=== PATIENT | female | born 1995 | race Caucasian/White ===

== ENCOUNTER 2020-08-19 10:06 | Emergency (ER) | payer SELFPAY ==
--- NOTE | 2020-08-19 10:22 | ED.DENTAL ---
HPI - Dental/Oral General Chief complaint: Dental/Oral Stated complaint: Tooth Pain Time Seen by Provider: 08/19/20 10:22 Source: patient and RN notes reviewed Mode of arrival: ambulatory Limitations: no limitations History of Present Illness HPI Narrative: 24-year-old female presents concern for right lower tooth pain. Reports she has a broken tooth in that area, it occasionally causes discomfort, however in the last several days it has been swelling, worsening pain, pain radiating to the neck and the ear. She reports mild fever when the pain first started. She has been unable to get into see the dentist. She reports she has been taking ibuprofen. She denies difficulty swallowing, foul taste in her mouth. MD Complaint: tooth pain Related Data Allergies Allergy/AdvReac Type Severity Reaction Status Date / Time No Known Allergies Allergy Unverified 12/31/18 11:44 Review of Systems Review of Systems: Narrative: CONSTITUTIONAL: Denies malaise, chills, sweats, or fever. EYES: Denies visual changes, redness, or discharge. ENT: Denies rhinorrhea, congestion, sinus pain, otalgia or sore throat. Reports right lower facial swelling and dental pain CARDIOVASCULAR: Denies chest pain, palpitations, or edema. RESPIRATORY: Denies cough or dyspnea. SKIN: Denies rash or itching. MUSCULOSKELETAL: Denies myalgia. NEUROLOGIC: Denies numbness, weakness, or headache. All systems reviewed & are unremarkable except as noted in HPI and below PMFSH Social History Social History Gender identity (if verbalized by the patient): Female Comments At time of signature, agree with nursing past medical, surgical, social and family history. There is no relevant family history pertinent to the presenting complaint Exam Narrative: Exam Narrative: GENERAL: Well-appearing, well-nourished, and in no acute distress. HEAD: Normocephalic, atraumatic. EYES: PERRLA, conjunctivae clear, and EOMI. No nystagmus. ENT: Nares clear. Mucous membranes moist. Oropharynx without erythema or lesions. Tonsils not enlarged and without exudate. Right lower jaw swelling tooth #31 broken with filling noted, no other caries, broken teeth are missing teeth noted NECK: Supple. CHEST: No respiratory distress. Clear to auscultation. No bony deformities, no asymmetry. Speaks in full sentences. HEART: Regular rate and rhythm. SKIN: Warm, dry, no rash. NEURO: Alert and oriented x3. PSYCH: Normal mood and affect Course Course Emergency Course: Patient is aware of diagnosis, understands and agrees to treatment plan. Anticipatory guidance given. Patient agrees to follow-up as directed and is aware of reasons to seek care at the emergency department. Portions of this record may have been created with voice recognition software Vital Signs Vital signs: Vital Signs Temperature 97.8 F 08/19/20 10:24 Pulse Rate 83 08/19/20 10:24 Respiratory Rate 16 08/19/20 10:24 Blood Pressure 120/78 08/19/20 10:24 Pulse Oximetry 100 08/19/20 10:24 Temperature 97.8 F 08/19/20 10:24 Pulse Rate 83 08/19/20 10:24 Respiratory Rate 16 08/19/20 10:24 Blood Pressure 120/78 08/19/20 10:24 Pulse Oximetry 100 08/19/20 10:24 Reviewed. MDM - Dental/Oral MDM Narrative Medical decision making narrative: Patients pain and complaint coupled with physical findings are consistant with dentalgia. There are no focal signs of space occupying lesions that are compromising to the airway; no dysphagia, odynophagia, dysphonia, or dyspnea. No uvular deviation or soft palate edema. Patient is non-toxic appearing. The floor of the mouth is soft with no signs of Virgil's Angina; no induration below mandible, no neck pain. Patient is without trismus or drooling and able to swallow secretions. Patient is felt appropriate for discharge home with dental follow up. Critical Care Time Critical Care Time Critical Care Time: No Discharge Plan Discharge Clinical Impression: Dental a
[2020-08-19 10:24] VITALS: BP 120/78; PULSE 83; RESP 16; TEMP 36.6; O2SAT 100
== END 2020-08-19 10:32 | disposition home or self-care (01) ==
PROVIDERS: Emergency Provider Nurse Practitioner
DX: K04.7 Periapical abscess without sinus (principal)
CPT/HCPCS: 99213; G0463

== ENCOUNTER 2021-02-22 19:29 | Emergency (ER) | payer SELFPAY ==
[2021-02-22 19:37] VITALS: BP 123/74; PULSE 67; RESP 17; TEMP 36.7; O2SAT 100
--- NOTE | 2021-02-22 19:57 | ED.DENTAL ---
HPI - Dental/Oral General Chief complaint: Dental/Oral Stated complaint: Tooth Pain Time Seen by Provider: 02/22/21 19:57 Source: patient Mode of arrival: ambulatory Limitations: no limitations History of Present Illness HPI Narrative: 25 year old female who presents to [facility] with complaints of facial swelling with dental pain upper and lower posteriorly radiating to bilateral ears. Patient states that she went [facility] past and was told she needed a specialist. Patient has numerous dental caries, missing teeth and with molars in front of wisdom teeth broken off with present wisdom teeth coming in at angles and pushing against remnants of those molars. Patient does have bilateral facial swelling along posterior jaw area,with some tenderness on palpation. Patient denies any difficulty with swallowing or with her breathing. MD Complaint: tooth pain Onset (ago): week(s) (2) Duration: constant Severity scale (1-10): 8 Relieving factors: NSAIDs Exacerbating factors: chewing Context: history of dental caries and poor dental care Associated symptoms: ear pain and other (facial swelling and pain) Treatment prior to arrival: oral analgesic (ibuprofen) Related Data Allergies Allergy/AdvReac Type Severity Reaction Status Date / Time No Known Allergies Allergy Verified 02/22/21 19:45 Review of Systems Review of Systems: CONSTITUTIONAL: Denies fever, chills, or sweats. EYES: Denies visual changes, redness, or discharge. ENT: Denies rhinorrhea, congestion, sore throat, or otalgia.dental pain with facial swelling,caries and wisdom teeth coming in at angles pushing against molars which have broken and have decay. CARDIOVASCULAR: Denies chest pain, palpitations, or edema. RESPIRATORY: Denies cough or dyspnea. GASTROINTESTINAL: Denies abdominal pain, nausea, vomiting, or diarrhea. GENITOURINARY: Denies dysuria or hematuria. SKIN: Denies rash or itching. MUSCULOSKELETAL: Denies back pain, joint pain, or myalgia. NEUROLOGIC: Denies headache, numbness, or weakness. PSYCHIATRIC: Denies anxiety or depression. All systems reviewed & are unremarkable except as noted in HPI and below PMFSH Past Medical History Medical History (Updated 02/25/21 @ 13:26 by Gita Amado NP) Heart murmur Pulmonary stenosis Social History Social History Gender identity (if verbalized by the patient): Female Comments At time of signature, agree with nursing past medical, surgical, social and family history. There is no relevant family history pertinent to the presenting complaint Exam Narrative: GENERAL: Well-appearing, well-nourished, and in no acute distress. HEAD: Normocephalic, atraumatic. EYES: PERRLA and EOMI. ENT: Nares clear, no rhinorrhea or epistaxis. Mucous membranes moist.TM's normal with good light reflex, throat pink with no tonsil swelling or exudates,no Virgil angina noted. Dental pain upper and lower posterior molars which are broken and decayed which have wisdom teeth that are coming in and pushing against them with swelling to gums with redness and pain NECK: Supple. no lymphadenopathy CHEST: Clear to auscultation. No respiratory distress.[id number]% on room air HEART: Regular rate and rhythm. No murmur heard. Normal peripheral pulses. ABDOMEN: Soft, nontender, nondistended, normal active bowel sounds. EXTREMITIES: Normal range of motion. No edema. SKIN: Warm, dry, no rash. NEURO: No focal deficits. Alert and oriented x3. Course Vital Signs Vital signs: Vital Signs Temperature 36.7 C 02/22/21 19:37 Pulse Rate 67 02/22/21 19:37 Respiratory Rate 02/22/21 19:37 Blood Pressure 123/74 02/22/21 19:37 Pulse Oximetry 100 02/22/21 19:37 Temperature 36.7 C 02/22/21 19:37 Pulse Rate 67 02/22/21 19:37 Respiratory Rate 02/22/21 19:37 Blood Pressure 123/74 02/22/21 19:37 Pulse Oximetry 100 02/22/21 19:37 MDM - Dental/Oral Diffe
== END 2021-02-22 20:22 | disposition home or self-care (01) ==
PROVIDERS: Emergency Provider Registered Nurse
DX: K02.9 Dental caries, unspecified (principal); K04.7 Periapical abscess without sinus; R01.1 Cardiac murmur, unspecified; Q25.6 Stenosis of pulmonary artery
CPT/HCPCS: 99213; G0463

== ENCOUNTER 2021-08-06 14:36 | Emergency (ER) | payer SELFPAY ==
[2021-08-06 14:49] VITALS: BP 127/77; PULSE 105; RESP 16; TEMP 36.3; O2SAT 99
--- NOTE | 2021-08-06 14:56 | ED.FEMALEGU ---
HPI - Female Genitourinary General Chief complaint: Urogenital-Female Stated complaint: leakage Time Seen by Provider: 08/06/21 14:50 Source: patient, family, RN notes reviewed and old records reviewed Mode of arrival: ambulatory Limitations: no limitations History of Present Illness HPI Narrative: 25-year-old female presents to the [facility] with complaints of leaking vaginally. Reports she is approximately 5 months . No care. 6 para 4 States that she feels the baby moving. MD elicited complaint: pelvic pain Related Data Home Medications Medication Instructions Recorded Confirmed No Home Medications 08/06/21 08/06/21 Allergies Allergy/AdvReac Type Severity Reaction Status Date / Time No Known Allergies Allergy Verified 02/22/21 19:45 Review of Systems Review of Systems: All systems reviewed & are unremarkable except as noted in HPI and below Constitutional: Constitutional: Reports no additional constitutional complaints, Denies chills and Denies fatigue ENT: Reports system reviewed and no additional complaints, except as documented Cardiovascular: Cardiovascular: Reports no additional cardiovascular complaints Respiratory: Respiratory: Reports no additional respiratory complaints Gastrointestinal: Gastrointestinal: Reports no additional gastrointestinal complaints, Denies abdominal pain and Denies nausea Genitourinary: Genitourinary: Reports vaginal discharge (clear) Musculoskeletal: Musculoskeletal: Reports no additional musculoskeletal complaints Integumentary/Breasts: Skin/Breast: Reports system reviewed and no additional complaints, except as docu Neurologic: Reports system reviewed and no additional complaints, except as documented Psychiatric: Psychiatric: Reports no additional psychiatric complaints Allergic/Immunologic: Allergic/Immunologic: Reports no additional allergic/immunologic complaints PMFSH Past Medical History Medical History Heart murmur Pulmonary stenosis Social History Social History Gender identity (if verbalized by the patient): Female Comments At the time of my signature, I reviewed and agree with the nursing past medical, surgical, social, and family history. There is no relevant family history pertinent to the patient complaint. Exam Const: General: healthy appearing, no acute distress and alert Nutritional Appearance: well nourished Orientation/consciousness: patient oriented x3 Limitations: no limitations HENMT: Head: normal to inspection Eyes: Pupils: Equal, round and reactive pupils present Neck: Neck: normal visual inspection, no lymphadenopathy and no meningeal signs Chest: Chest palpation & inspection: normal inspection of the chest Resp: Effort & Inspection: normal respiratory effort and no use of accessory muscles Auscultation: clear to auscultation bilaterally, no crackles, no rales, no rhonchi and no wheezes Cardio: Rate: regular rate Rhythm: regular rhythm GI: GI Palp: Yes Soft to palpation Other: Able to feel baby moving on palpation Back/Spine/Pelvis: Back: no CVA tenderness Skin: General skin exam: normal color Rashes: no rashes Wounds: no wounds Neuro: General: patient oriented x3, moves all extremities, no meningeal signs and no focal motor deficits Speech: normal speech Gait exam (Neuro): Normal gait present Extrem: General: normal to inspection Psych: Mental Status: mental status grossly normal Affect: normal affect and Anxious affect present Attitude: cooperative Thought content: Yes Normal thought content present Course Course Emergency Course: Transfer instructions reviewed with patient, as well as provided in writing per nursing staff. The instructions also include specific and strict GO TO THE ER. Patient offered EMS transport, patient declined wanting her friend to drive her. All questions
[2021-08-06 14:58] VITALS: BP 127/77; PULSE 105; RESP 16; TEMP 36.3; O2SAT 99
--- NOTE | 2021-08-06 16:52 | PC.NURSE ---
radio time salesperson [facility]
== END 2021-08-06 15:07 | disposition short-term general hospital (02) ==
PROVIDERS: Emergency Provider Nurse Practitioner
DX: O26.90 Pregnancy related conditions, unspecified, unspecified trimester (principal)
CPT/HCPCS: 99212; G0463

== ENCOUNTER 2022-07-25 16:58 | Emergency (ER) | payer OTHER, SELFPAY ==
--- NOTE | ~2022-07-25 | US_ITS ---
EXAMINATION: US OB <= 14 weeks fetus DATE: 07/25/2022 18:18 INDICATION: Vaginal bleeding in . TECHNIQUE: Real-time transabdominal pelvic ultrasound was performed. COMPARISON: None. FINDINGS: There is a gestational sac in the lower uterine segment and cervix. The crown rump length ignacio ures 1.9 cm, which correlates with an estimated gestational age of 8 weeks and 3 day(s) (+/-) 5 day(s ). heart motion is not identified by M-mode Doppler. The right ovary is not visualized. The lef t ovary measures 3.8 x 3.8 x 2.1 cm. There is no free fluid in the pelvis. IMPRESSION: 1. demise. Reviewed, dictated and finalized at location A. LITY MAINTENANCE MANAGER IMPRESSION: 1. demise.
--- NOTE | 2022-07-25 17:31 | PC.NURSE ---
Patient complains of contraction type pains. Patient has been bleeding a few days ago.
[2022-07-25 17:33] VITALS: BP 140/78; PULSE 53; RESP 13; O2SAT 100
[2022-07-25 18:29] LABS: Add Urine Microscopic? YES; Appearance Urine Clear (Clear); Bilirubin Urine Negative (Negative); Blood Urine 3+ (Negative); Color Urine Yellow (Yellow); Glucose Urine UA Negative (Negative); Ketones Urine Negative (Negative); Leukocyte Esterase Ur Negative LEU/UL (Negative); Nitrate Urine Negative (Negative); Protein Urine Negative (Negative); Urobilinogen Urine 0.2 mg/dL (<2.0)
[2022-07-25 18:30] LABS: Basophils Absolute Auto 0.1 K/mm3 (0.0-0.1); Eosinophils Absolute Auto 0.2 K/mm3 (0-0.3); Eosinophils Percent Auto 1.2 % (0-4.4); Hematocrit 39.7 % (37.0-47.0); Immature Granulocyte Absolute 0.05 K/mm3 (0.00-0.031); Immature Granulocyte Percent A 0.4 % (0-0.5); Immature Platelet Fraction Pct 21.5 % (0.9-11.2); Lymphocytes Percent Auto 37.7 % (18.3-44.2); Mean Corpuscular HGB Conc 32.7 g/dl (32-36); Mean Corpuscular Hemoglobin 31.3 pg (26-34); Mean Corpuscular Volume 95.4 fl (80-100); Mean Platelet Volume 14.4 fl (7.4-10.4); Monocytes Absolute Auto 1.1 K/mm3 (0.1-0.6); Monocytes Percent Auto 7.8 % (2.6-8.5); Neutrophils Absolute Auto 7.2 K/mm3 (1.3-6.7); Neutrophils Percent Auto 51.9 % (45.5-73.1); Platelet Count Result 172 k/mm3 (150-375); Red Blood Count 4.16 M/mm3 (4.2-5.4); Red Cell Distribution Width 13.4 % (11.5-14.5); White Blood Count 13.8 K/mm3 (4.5-10.0)
[2022-07-25 18:34] LABS: Mucus Urine Rare /lpf; RBC Urine >75 /hpf (0-2); Squamous Epithelial Cell Urine Rare /hpf (Few); WBC Urine 0-3 /hpf
--- NOTE | 2022-07-25 18:37 | ED.GENADULT ---
HPI - General Adult General Chief complaint: Vaginal Bleeding Stated complaint: abd cramping, vag bleeding Time Seen by Provider: 07/25/22 17:34 History of Present Illness HPI narrative: Patient is a 26-year-old female who is a G6, P5 with LMP 2 months ago that presents ER with vaginal bleeding. Started spotting a couple days ago and started having heavier bleeding this evening where she bled through a pad. She is having suprapubic cramping. She is experiencing nausea and dry heaves. She does not have anOB currently. Related Data Home Medications Medication Instructions Recorded Confirmed No Home Medications 08/06/21 08/06/21 Allergies Allergy/AdvReac Type Severity Reaction Status Date / Time No Known Allergies Allergy Verified 02/22/21 19:45 Review of Systems Review of Systems: All systems reviewed & are unremarkable except as noted in HPI and below Constitutional: Constitutional: Denies chills, Denies fatigue and Denies fever(s) ENT: Denies nasal congestion and Denies sore throat Cardiovascular: Cardiovascular: Denies chest pain, Denies rapid heart rate and Denies radiating jaw, neck or arm pain Respiratory: Respiratory: Denies cough and Denies dyspnea Gastrointestinal: Gastrointestinal: Reports abdominal pain, Denies constipation, Reports nausea and Reports vomiting Genitourinary: Genitourinary: Reports abnormal vaginal bleeding, Denies nocturia, Denies dysuria and Denies flank pain PMFSH Past Medical History Medical History Heart murmur Pulmonary stenosis Social History Social History Gender identity (if verbalized by the patient): Female Exam Narrative: GENERAL: Uncomfortable-appearing, well-nourished, and in mild distress. HEAD: Normocephalic, atraumatic. ENT: Mucous membranes moist. NECK: Supple. CHEST: Clear to auscultation. No respiratory distress. HEART: Regular rate and rhythm. Normal peripheral pulses. ABDOMEN: Soft, nontender, nondistended. : Normal external genitalia with some dried blood. Cervix open approximately 3 to 4 cm dilated with products of conception actively trying to pass. Mild-moderate amount of blood and clot evacuated from the vagina. No discharge. EXTREMITIES: Normal range of motion. No edema. SKIN: Warm, dry, pale, no rash. NEURO: Alert and oriented x3. Course Reevaluation(s) Reevaluation #1: Discussed with Dr. Bauman. Recommends IM Methergine. Does not recommend any procedures at this time as it seems patient is actively trying to pass the fetus. Date: 07/25/22 Time: 18:42 Reevaluation #2: Patient informed of conversation with OB as well as imaging results and labs. Patient has been given Methergine. Patient wishes to leave AGAINST MEDICAL ADVICE as she would like to pass the products of conception at home and her kids are in the car currently and she would like to get them home to be situated. She reports she may return in 2 hours. Discussed its recommended that she not leave the hospital because she continues to have nausea and dry heaves as well as some bleeding. She has not been hypotensive and her hemoglobin is normal. She has been educated that she could lose her life due to hemorrhage, infection, secondary traumatic event, or develop permanent disability should she leave without full care from the hospital. Patient verbalizes understanding of this. Patient does not seem to exhibit any confusion about what she is doing. Date: 07/25/22 Time: 19:14 Vital Signs Vital signs: Vital Signs Pulse Rate 53 L 07/25/22 17:33 Respiratory Rate 13 07/25/22 17:33 Blood Pressure 140/78 07/25/22 17:33 Pulse Oximetry 100 07/25/22 17:33 Pulse Rate 53 L 07/25/22 17:33 Respiratory Rate 13 07/25/22 17:33 Blood Pressure 140/78 07/25/22 17:33 Pulse Oximetry 100 07/25/22 17:33 Medical Decision Making Vital Signs Vital Signs:
[2022-07-25 18:41] LABS: Alanine Aminotransferase 22 U/L (6-35); Albumin Level 4.7 g/dL (3.5-5.1); Alkaline Phosphatase 40 U/L (38-126); Anion Gap 9 mmol/L (8-16); Aspartate Amino Transferase 20 U/L (14-36); Bilirubin,Total 0.4 mg/dL (0.2-1.3); Blood Urea Nitrogen 7 mg/dL (7-17); Calcium 9.2 mg/dL (8.4-10.2); Carbon Dioxide 23 mmol/L (22-30); Chloride 106 mmol/L (98-107); Estimated Glomerular Filt Rate > 60; Glucose 115 mg/dL (65-110); Potassium 3.2 mmol/L (3.4-5.0); Sodium 138 mmol/L (137-145)
--- NOTE | 2022-07-25 18:43 | PC.NURSE ---
Patient called RN into room stating she didnt feel well. Patient was standing up over the trash can vomiting and was having active vaginal bleeding. This RN called for MD to come to bedside. Patient placed back into bed and provider to bedside to assist with bleeding. Patient vital signs are stable at this time.
[2022-07-25] MEDS: ONDANSETRON INJ 4 MG/2 ML VIAL IV PUSH (18:47)
[2022-07-25 18:49] LABS: INR 1.1
[2022-07-25 18:50] LABS: Partial Thromboplastin Time 26.6 SECONDS (22.3-36.8)
[2022-07-25] MEDS: METHYLERGONOVINE MALEATE 0.2 MG/ML VIAL IM (18:56)
[2022-07-25] MEDS: SODIUM CHLORIDE 0.9% IV 1,000 ML 999 ML IV CONT (18:56)
--- NOTE | 2022-07-25 19:19 | PC.NURSE ---
Patient states she wants to leave AMA. Dr Tobar and primary RN talked to patient about risks of leaving. Patient states if i get worse I will come back . This RN explained to patient that her condition could change drastically. Patient states she is aware of risks. Patient signed AMA paperwork and ambulated out with steady gate
== END 2022-07-25 19:30 | disposition left against medical advice (07) ==
PROVIDERS: Emergency Provider Emergency Medicine
DX: O02.1 Missed abortion (principal); Z3A.08 8 weeks gestation of pregnancy
CPT/HCPCS: 36415; 76801; 80053; 81001; 81025; 84702; 85025; 85055; 85461; 85610; 85730; 86850; 86900; 86901; 96372; 96374; 99284; J2210; J2405; J7030

== ENCOUNTER 2025-01-28 19:42 | Emergency (ER) | payer OTHER, SELFPAY ==
--- OUTSIDE RECORDS SUMMARY | 2025-01-28 19:43 | XMS_ITS | Continuity of Care Document ---
Author Name Christelle Carranza Address [address] [place] [address] Organization Unknown Address [address] [place] [address] Medications No known medications Problems No known problems
--- OUTSIDE RECORDS SUMMARY | 2025-01-28 19:43 | XMS_ITS | Continuity of Care Document ---
Author Name Christelle Carranza Address [address] [place], [place] [id number] [place] [address] Organization Unknown Address [address] [place] [address] Medications No known medications Problems No known problems
--- OUTSIDE RECORDS SUMMARY | 2025-01-28 19:43 | XMS_ITS | Clinical Summary ---
Author Organization [facility] Address [address] [place] [id number] Care Team Providers Care Engraving Plate Maker Name Role Phone None, Provider MD Primary Care Provider Unavaila ble Allergies No known active allergies Medications No known medications Active Problems Problem Noted Date Diagnosed Date premature rupture of membranes (PPROM) with unknown onset of labor ([facility]) 08/06/2021 Bacterial vaginosis in ([facility]) 08/06 Insufficient care, third trimester ([facility]) 06/16/2019 ([facility]) 02/12/2018 Social History Tobacco Use Types Packs/Day Years Used Date Smoking Tobacco: Never Smokeless Tobacco: Never Alcohol Use Standard Drinks/Week Comments No 0 (1 standard drink = 0.6 oz pur e alcohol) Humiliation, Afraid, Rape, and Kick questionnair e Answer Date Recorded Fear of Current or Ex-Partner No Emotionally Abused No 06/16/2019 Physically Abused No 06/16/2019 Sexually Abused No 06/16/2019 Comments No Sex and Gender Information Value Date Recorded Sex Assigned at Not on file Legal Sex Female 6:06 PM CDT Gender Identity Not on file Sexual Orientation Not on file Last Filed Vital Signs Vital Sign Reading Time Taken Comments Blood Pressure 121/61 08/06/2021 9:46 PM INFORMATION SPECIALIST Pulse 84 08/06/2021 9:46 PM INFORMATION SPECIALIST Temperature 37.1 C (98.8 F) 08/06/2021 7:00 PM INFORMATION SPECIALIST Respiratory Rate 16 06/18/2019 9:22 AM INFORMATION SPECIALIST Oxygen Saturation 100% 08/06/2021 8:13 PM INFORMATION SPECIALIST Inhaled Oxygen Concentration - - Weight 54.4 kg (120 lb) 08/06/2021 7:00 PM INFORMATION SPECIALIST Height 154.9 cm (5' 1) 08/06/2021 7:00 PM INFORMATION SPECIALIST Body Mass Index 22.67 08/06/2021 7:00 PM INFORMATION SPECIALIST Plan of Treatment Health Maintenance Due Date Last Done Comments Cervical Cancer Screening Pap Smear (Age 30 to 64) Every 3 Years 1993 Annual Physical 1996 DTaP, Tdap and Td Vaccines (6 - Td or Tdap) 12/05/2018 12/05/2008, 03/18/1999, 11/20/1997, Additional history exists Cervical Cancer Screening Pap with HPV Testing (Age 30 to 64) Every 5 Years 2023 Cervical Cancer Screening with HPV 2023 COVID-19 Vaccine ( season) 2024 Hepatitis B Vaccines Completed 12/19/2003, 11/20/1997, 09/19/1997 Hepatitis C Completed 02/12/2018 HPV Vaccines Aged Out No longer eligi ble based on patient's age to complete this topic Meningococcal B Vaccine Aged Out No l onger eligible based on patient's age to complete this topic Meningococcal Vaccine Aged Out No vero mitzy eligible based on patient's age to complete this topic Pneumococcal Vaccine: Pediatrics (0 to 5 Years) and At-Risk Patients (6 to 49 Years) Aged Out No longer eligible based on patient's age to complete this topic RSV Immunizations Under 20 Months Aged Out No longer eligible based on patient's age to complete this topic Procedures Procedure Name Priority Date/Time Associated Diagnosis Comments HEPATITIS C ANTIBODY Routine 02/12/2018 6:25 PM CDT from Last 3 Months or Most Recently Relevant to Health Maintenance Results * HEPATITIS C ANTIBODY (02/12/2018 6:25 PM CDT) HEPATITIS C AB NON-REACTI VE NON-REACTI VE 02/13/2018 1:32 AM CDT [facility] 02/12/2018 6:25 PM CDT us Jane Palmer MD LABORATORY Final Resu lt [facility] [address] [place] [address], [place] [phone] from Last 3 Months or Most Recently Relevant to Health Maintenance Insurance MEDICAID Advance Directives * Full Code (Latest Code Status on File) Date Activated Date Inactivated Comments 06/16/2019 10:54 AM 06/18/2019 5:26 PM * Full Code Date Activated Date Inactivated Comments 02/12/2018 6:26 PM 02/14/2018 9:52 PM Care Teams Engraving Plate Maker Relationship Specialty Start Date End Date None, ProviderMD PCP - General 06/16/19
--- OUTSIDE RECORDS SUMMARY | 2025-01-28 19:43 | XMS_ITS | Encounter Summary ---
Author Organization [facility] Address [facility] [place] [address] Care Team Providers Care Phone Counselor Name Role Phone None, Provider Primary Care Provider Dylan ble Encounter Details Date Type Department Care Team (Late st Contact Info) Description 06/20/2019 Hospital Follow-up Call [facility] [place] [address] Viktoriya Peres RN Social History Tobacco Use Types Packs/Day Years [...] on file Sexual Orientation Not on file documented as of this encounter Functional Status * RETIRED Are you deaf or do you have serious difficulty hearing Answer Date of Assessment Author Status No 06/16/2019 11:00 AM DIRECTOR INSTITUTION Acti ve * RETIRED Are you blind or do you have serious difficulty seeing, even when wearing glasses? Answer Date of Assessment Author Status No 06/16/2019 11:00 AM DIRECTOR INSTITUTION Acti ve * Do you have serious difficulty walking or climbing stairs? Answer Date of Assessment Author Status No 06/16/2019 11:00 AM Angie Lopez RN Active * Do you have difficulty dressing or bathing? Answer Date of Assessment Author Status No 06/16/2019 11:00 AM Angie Lopez RN Active * Because of a physical, mental, or emotional condition, do you have difficulty doing errands alone such as visiting a doctor's office or shopping? Answer Date of Assessment Author Status No 06/16/2019 11:00 AM Angie Lopez RN Active documented as of this encounter Mental Status * Because of a physical, mental, or emotional condition, do you have serious difficulty concentrating, remembering, or making decisions? Answer Entry Date Author Status No 06/16/2019 11:00 AM Angie Lopez RN Active documented in this encounter Plan of Treatment Not on file documented as of this encounter Visit Diagnoses Not on filedocumented in this encounter Care Teams Phone Counselor Relationship Specialty Start Date End Date None, Provider, PCP - General 06/16/19 documented as of this encounter
--- OUTSIDE RECORDS SUMMARY | 2025-01-28 19:43 | XMS_ITS | Encounter Summary ---
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 Answer Date of Assessment Author Status No 06/16/2019 11:00 AM GRIT BLASTER Acti ve * Do you have serious [...] Author Status No 06/16/2019 11:00 AM Angie Lopze RN Active documented in this encounter Plan of Treatment Not on file documented as of this encounter Visit Diagnoses Not on filedocumented in this encounter Care Teams Theater Manager Relationship Specialty Start Date End Date None, Provider, PCP - General 06/16/19 documented as of this encounter
--- OUTSIDE RECORDS SUMMARY | 2025-01-28 19:43 | XMS_ITS | Encounter Summary ---
Author Organization [facility] Address [address] [place] [id number] Care Team Providers Care Screen Writer Name Role Phone None, Provider Primary Care Provider Anuraga ble Encounter Details Date Type Department Care Team (Late st Contact Info) Description 02/21/2018 Hospital Follow-up Call [facility] [place] [address] Madeleine Joyce, RN Social History Tobacco Use Types Packs/Day Years Used Date Smoking Tobacco: Never Smokeless Tobacco: Never Alcohol Use Standard Drinks/Week Comments No 0 (1 standard drink = 0.6 oz pur e alcohol) Comments No Sex and Gender Information Value Date Recorded Sex Assigned at Not on file Legal Sex Female 6:06 PM CDT Gender Identity Not on file Sexual Orientation Not on file documented as of this encounter Plan of Treatment Not on file documented as of this encounter Visit Diagnoses Not on filedocumented in this encounter Care Teams Screen Writer Relationship Specialty Start Date End Date None, ProviderMD PCP - General 06/16/19 documented as of this encounter
[2025-01-28 19:45] VITALS: BP 119/54; PULSE 98; RESP 18; TEMP 36.8; O2SAT 99
--- OUTSIDE RECORDS SUMMARY | 2025-01-29 00:25 | XMS_ITS | Clinical Summary ---
Author Organization [facility] Address [address] [place] [address] Care Team Providers Care Product Operations Associate Name Role Phone Gabbi Ch MD Primary Care Provider [phone] Source Comments [facility],non-owned Affiliates and Associated Physician Practices is amultiple site organization consisting of ambulatory clinics and hospital sitesin [place], [place], [place] and [place]. This disclosure is being madepursuant to the Care Everywhere program and may not contain all information available regarding this patient. Last updated 18.[facility] [place] Allergies No known active allergies Medications * Be aware that medications may not be up to date on this document. Alwaysverify current medications with the patient. ibuprofen (MOTRIN) 600 MG tabletIndications:P reterm premature rupture of membranes (PPROM) with onset of labor after 24 hours of rupture in third trimester, antepartum (HCC) Take 1 (one) tablet by mouth every 6 hours as needed for Pain 60 tablet 09/04/19 22 Active iron polysaccharides (NIFEREX 150) 150 MG capsuleIndications: premature rupture of membranes (PPROM) with onset of labor after 24 hours of rupture in third trimester, antepartum (HCC) Take 1 (one) capsule by mouth once daily 30 capsule 09/05/19 22 Active docusate sodium (COLACE) 100 MG capsuleIndications: premature rupture of membranes (PPROM) with onset of labor after 24 hours of rupture in third trimester, antepartum (HCC) Take 1 (one) capsule by mouth 2 times daily as needed for Constipation 30 capsule 09/04/19 22 Active Vit-DSS-Fe Fum-FA ( VITAMIN WITH IRON) tabletIndications:P reterm premature rupture of membranes (PPROM) with onset of labor after 24 hours of rupture in third trimester, antepartum (HCC) Take 1 (one) tablet by mouth once daily 30 tablet 11 09/05/19 22 Active Active Problems Problem Noted Date Diagnosed Date Personal history of pulmonic valve stenosis 07/27 Resolved Problems Problem Noted Date Diagnosed Date Resolved Date Hx of preeclampsia, prior pr egnancy, currently 08/24/2021 09/04/2021 premature rupture of membranes (PPROM) with onset of labor after 24 hours of rupture in third trimester, antepartum 08/08/2021 0 09/04/2021 No care in current , third trimester 08/08/2021 09/04/2021 Leakage of amniotic fluid 08/07/2021 Placental abnormality in third trimester 09/04/2021 Immunizations Immunization Administration Dates Next Due MMR 09/03/2021() TDAP (7yrs+) 09/03/2021(Deferred: Patient Ref used) Social History Tobacco Use Types Packs/Day Years Used Date Smoking Tobacco: Former Smokeless Tobacco: Never Tobacco Cessation:Counseling Given: Yes Alcohol Use Standard Drinks/Week Comments Not Currently 0 (1 standard drink = 0.6 oz pur e alcohol) [place] Depression Scale Answer Date Recorded RETIRED: Total Score 4 09/03/2021 Last EPDS Self Harm Result Not on file 09/03 Comments No Sex and Gender Information Value Date Recorded Sex Assigned at Not on file Legal Sex Female 11:16 AM CREDIT COLLECTIONS REP Gender Identity Not on file Sexual Orientation Not on file Last Filed Vital Signs Vital Sign Reading Time Taken Comments Blood Pressure 128/79 09/04/2021 8:00 AM CREDIT COLLECTIONS REP Pulse 78 09/04/2021 8:00 AM CREDIT COLLECTIONS REP Temperature 37 C (98.6 F) 09/04/2021 8:00 AM CREDIT COLLECTIONS REP Respiratory Rate 16 09/04/2021 8:00 AM CREDIT COLLECTIONS REP Oxygen Saturation 99% 09/04/2021 8:00 AM CREDIT COLLECTIONS REP Inhaled Oxygen Concentration - - Weight 54.5 kg (120 lb 1 oz) 08/25/2021 10:10 AM CREDIT COLLECTIONS REP Height 157.5 cm (5' 2) 08/25/2021 10:10 AM CREDIT COLLECTIONS REP Body Mass Index 21.96 08/25/2021 10:10 AM CREDIT COLLECTIONS REP Plan of Treatment Health Maintenance Due Date Last Done Comments DTAP/TDAP/TD VACCINES (1 - Tdap) 2012 HEPATITIS B VACCINE (1 of 3 - 19+ 3-dose series) 2012 COVID-19 VACCINE (1 - 2023-2 5 season) 2024 DEPRESSION SCREENING 07/27/2024 INFLUENZA VACCINE (#1) 2025 ZOSTER VACCINE (1 of 2) 2043 HEPATITIS C SCREENING Completed 08/07/2021 HIV SCREENING Completed 08/07/2021 HIB VACCINE Aged Out No longer eligi ble based on patient's age to complete this topic HPV VACCINE Aged Out No longer eligi ble based on patient's age to complete this topic MENINGOCOCCAL (Group B) VACC INE SHARED DECISION-MAKING Aged Out No longer eligibl e based on patient's age to complete this topic MENINGOCOCCAL GROUPS A/C/Y/W VACCINE Aged Out No longer eligible b ased on patient's age to complete this topic PNEUMOCOCCAL VACCINE Aged Out No long er eligible based on patient's age to complete this topic Procedures Procedure Name Priority Date/Time Associated Diagnosis Comments HEPATITIS C ANTIBODY STAT 08/07/2021 3:49 PM CREDIT COLLECTIONS REP Leakage of amniotic fluid HIV-1 HIV-2 ANTIBODY + HIV P24 AG PANEL STAT 08/07/2021 3:49 PM CREDIT COLLECTIONS REP Leakage of amniotic fluid from Last 3 Months or Most Recently Relevant to Health Maintenance Results * HIV-1 HIV-2 ANTIBODY + HIV P24 AG PANEL (08/07/2021 3:49 PM CREDIT COLLECTIONS REP) HIV1/2 Ab + P24 Ag Non Reactive Non Reactive 08/07/2021 4:49 PM CREDIT COLLECTIONS REP [facility] Blood BLOOD SPECIMEN / Unknown Venipuncture / Unknown 08/07/2021 3:49 PM CREDIT COLLECTIONS REP 08/07/2021 4:02 PM CREDIT COLLECTIONS REP Narrative [facility] - 08/07/2021 4:49 PM CREDIT COLLECTIONS REP No Laboratory evidence of HIV infection. May Colon MD LAB - CHEMISTRY ORDERABLES Final Result Performing Organization Address [facility]/ZIP Co de Phone Number [facility] [address] [place] [phone] * HEPATITIS C ANTIBODY (08/07/2021 3:49 PM CREDIT COLLECTIONS REP) [facility] Signature HCV Antibody Screen Non Reactive Non Reactive 08/07/2021 4:54 PM CREDIT COLLECTIONS REP [facility] Blood BLOOD SPECIMEN / Unknown Venipuncture / Unknown 08/07/2021 3:49 PM CREDIT COLLECTIONS REP 08/07/2021 4:02 PM CREDIT COLLECTIONS REP Narrative [facility] - 08/07/2021 4:54 PM CREDIT COLLECTIONS REP Non Reactive - Antibodies to Hepatitis C virus (HCV) were not detected, result does not exclude early acute HCV infection. May Colon MD LAB - CHEMISTRY ORDERABLES Final Result Performing Organization Address [facility] de Phone Number [facility] [address] [place] [phone] from Last 3 Months or Most Recently Relevant to Health Maintenance Insurance MEDICAID [employer] [place] MEDICAID - OUT OF STATE Advance Directives * Full Code (Latest Code Status on File) Date Activated Date Inactivated Comments 09/01/2021 3:29 PM 09/04/2021 11:53 AM * Full Code Date Activated Date Inactivated Comments 08/22/2021 8:50 PM 09/01/2021 3:29 PM * Full Code Date Activated Date Inactivated Comments 08/07/2021 3:30 PM 08/18/2021 6:34 PM Care Teams Product Operations Associate Relationship Specialty Start Date End Date Gabbi Ch MD [address] [place] [id number] PCP - General 08/08/21
--- OUTSIDE RECORDS SUMMARY | 2025-01-29 00:26 | XMS_ITS | Clinical Summary ---
Author Organization [facility] Address [address] [place] [address] Phone Care Team Providers Care Technical Support Analyst Name Role Phone Unavailable Primary Care Provider Unavailabl e Allergies No known active allergies Medications ketorolac tromethamine (TORADOL) 10 mg tablet Take 1 Tablet (10 mg) by mouth every 6 hours as needed for Pain. 20 Tablet 4 Active tamsulosin (Flomax) 0.4 mg capsule Take 1 Capsule (0.4 mg) by mouth daily. 20 Capsule 4 Active HYDROcodone-aceta minophen (NORCO) 5-325 mg tabletIndications :Kidney stone Take 1 Tablet by mouth every 6 hours as needed for Pain, Break-Throug h. Max Daily Amount: 4 Tablets 12 Tablet 4 Active Active Problems Problem Noted Date Diagnosed Date Supervision of other high-risk (V23.89) 03/27/2011 Social History Tobacco Use Types Packs/Day Years Used Date Smoking Tobacco: Never Assessed Alcohol Use Standard Drinks/Week Comments Not Currently 0 (1 standard drink = 0.6 oz pur e alcohol) Feeling Safe Answer Date Recorded Are you in a relationship wi th someone who hurts you emotionally and/or physically? No 08/28/2023 Comments No Sex and Gender Information Value Date Recorded Sex Assigned at Not on file Legal Sex Female 6:03 AM NUCLEAR DESIGN ENGINEER Gender Identity Not on file Sexual Orientation Not on file Last Filed Vital Signs Vital Sign Reading Time Taken Comments Blood Pressure 120/64 08/28/2023 5:00 PM NUCLEAR DESIGN ENGINEER Pulse 107 08/28/2023 11:30 AM NUCLEAR DESIGN ENGINEER Temperature 36.6 C (97.9 F) 08/28/2023 5:00 PM NUCLEAR DESIGN ENGINEER Respiratory Rate 14 08/28/2023 5:00 PM NUCLEAR DESIGN ENGINEER Oxygen Saturation 97% 08/28/2023 5:00 PM NUCLEAR DESIGN ENGINEER Inhaled Oxygen Concentration - - Weight 56.7 kg (125 lb) 08/28/2023 11:30 AM NUCLEAR DESIGN ENGINEER Height 157.5 cm (5' 2) 08/28/2023 11:30 AM NUCLEAR DESIGN ENGINEER Body Mass Index 22.86 08/28/2023 11:30 AM NUCLEAR DESIGN ENGINEER Plan of Treatment Health Maintenance Due Date Last Done Comments DTAP/TDAP/TD VACCINES (1 - Tdap) 2012 HEPATITIS B VACCINES (1 of 3 - 19+ 3-dose series) 2012 HPV/Cotest (21-29) 2014 CERVICAL CANCER SCREENING 2023 HPV/Cotest (30-65) 2023 PAP SMEAR 2023 INFLUENZA VACCINE (#1) 2024 HPV VACCINES Aged Out No longer eligi ble based on patient's age to complete this topic Insurance MEDICAID [place] [employer] INDIVIDUAL EXCHANGE [id number]
--- NOTE | 2025-01-29 00:49 | ED.GENADULT ---
[facility] - General Adult General Chief complaint: Unspecified Stated complaint: multiple complaints Time Seen by Provider: 01/29/25 00:18 History of Present Illness HPI narrative: 29-year-old female with no pertinent past medical history presenting to the emergency depart with multiple complaints. Her most chief complaint is that she is having some green vaginal discharge and wants a test. Her secondary complaint is that she has had some red discolored skin over the trunk, shoulders, bilateral upper extremities that is now painful especially at her distal finger tips. She was out in the hot sun and outside for a prolonged period time as well. She appears to have a sunburn in the distribution of her clothing as it does spare the bra line and the region where her top covers her. Seems to be a first-degree burn to the bilateral shoulders all the way to the fingertips and nape of the neck, anterior portion of the chest wall, spares the underside where contact to the chest/abd is. Blanches with palpation. Tender to palpation but no sloughing of the skin. Patient denies any abdominal pain, pelvic pain, fever, chills, chest pain, shortness a breath. Is concerned about STDs with sexual partners. Also concerned that she could be . Related Data Allergies Allergy/AdvReac Type Severity Reaction Status Date / Time No Known Allergies Allergy Verified 01/29/25 01:24 Review of Systems Review of Systems: As reviewed above in HPI [facility] Past Medical History Medical History Heart murmur Pulmonary stenosis Social History Social History Gender identity (if verbalized by the patient): Female Exam Narrative: GENERAL: [Well-appearing, well-nourished, and in no acute distress.] HEAD: [Normocephalic, atraumatic.] EYES: [PERRLA and EOMI.] ENT: Nares clear, no rhinorrhea or epistaxis. Mucous membranes moist. NECK: Supple. CHEST: [Clear to auscultation. No respiratory distress.] HEART: [Regular rate and rhythm]. No murmur heard. [Normal peripheral pulses.] ABDOMEN: [Soft, nondistended], [nontender], [No rigidity or guarding] EXTREMITIES: Normal range of motion. [No edema.] SKIN: Sunburn in the distribution of her clothing as it does spare the bra line and the shoulder region where her tank top is. Seems to be a first-degree burn to the bilateral shoulders all the way to the fingertips and nape of the neck, anterior portion of the chest wall. Blanches with palpation. Tender to palpation but no sloughing of the skin. NEURO: [No focal deficits]. Alert and oriented [x3.] PSYCH: [Normal mood and affect.] Course Vital Signs Vital signs: Vital Signs Temperature 36.8 C 01/28/25 19:45 Pulse Rate 98 01/28/25 19:45 Respiratory Rate 18 01/28/25 19:45 Blood Pressure 119/54 L 01/28/25 19:45 Pulse Oximetry 99 01/28/25 19:45 Temperature 36.8 C 01/28/25 19:45 Pulse Rate 106 H 01/29/25 01:16 Respiratory Rate 18 01/29/25 01:16 Blood Pressure 134/74 01/29/25 01:16 Pulse Oximetry 100 01/29/25 01:16 Medical Decision Making [facility] Narrative Medical decision making narrative: 29-year-old female with no pertinent past medical history presenting to the emergency depart with multiple complaints. Her most chief complaint is that she is having some green vaginal discharge and wants a test. Her secondary complaint is that she has had some red discolored skin over the trunk, shoulders, bilateral upper extremities that is now painful especially at her distal finger tips. She was out in the hot sun and outside for a prolonged period time as well. She appears to have a sunburn in the distribution of her clothing as it does spare the bra line and the region where her top covers her. Seems to be a first-degree burn to the bilateral shoulders all the way to the fingertips and nape of the neck, anterior portion of the chest wall, spares the underside where contact to the chest/abd is. Blanches with palpation. Tender to palpation but no sloughing of the skin. Patient denies any abdominal pain, pelvic pain, fever, chills, chest pain, shortness a breath. Is concerned about STDs with sexual partners. Also concerned that she could be . Patient's exam does show the sunburn first-degree and she has a benign abdominal examination. Given her discharge and concerns for STDs suspicion for potential gonorrhea, chlamydia, Trichomonas, syphilis is high, low suspicion pelvic inflammatory disease or intra-abdominal or pelvic pathology. Possibility of as she is concerned about will be evaluated with a serum test. Basic laboratory studies ordered and STD panel obtained. Patient's testing came back positive for Trichomonas and she was made aware of the STD and need to contact her sexual partners for treatment as well. She was given a dose of metronidazole and a prescription for the above. Laboratory studies also show a low potassium which was repleted. Patient's questions were answered and she was discharged home with primary care provider follow-up and antibiotics. Medical Records Medical records reviewed: Yes I reviewed the external patient's medical records. Vital Signs Vital Signs: Vital Signs Temperature 36.8 C 01/28/25 19:45 Pulse Rate 98 01/28/25 19:45 Respiratory Rate 18 01/28/25 19:45 Blood Pressure 119/54 L 01/28/25 19:45 Pulse Oximetry 99 01/28/25 19:45 Temperature 36.8 C 01/28/25 19:45 Pulse Rate 106 H 01/29/25 01:16 Respiratory Rate 18 01/29/25 01:16 Blood Pressure 134/74 01/29/25 01:16 Pulse Oximetry 100 01/29/25 01:16 Lab Data Lab results reviewed: Yes I reviewed the patient's lab results. 01/29/25 01:44 01/29/25 01:44 Labs: Lab Results 01/29/25 01/29/25 Range/Units 01:23 01:44 WBC 11.5 H (4.5-10.0) K/mm3 RBC 3.83 L (4.2-5.4) M/mm3 Hgb 11.9 L (12.0-15.0) g/dL Hct 36.4 L (37.0-47.0) % MCV 95.0 (80-100) fl MCH 31.1 (26-34) pg MCHC 32.7 (32-36) g/dl RDW 13.9 (11.5-14.5) % Plt Count 203 (150-375) k/mm3 MPV 12.0 H (7.4-10.4) fl Immature Gran % (Auto) Not Reportable Neut % (Auto) Not Reportable Lymph % (Auto) Not Reportable Gray % (Auto) Not Reportable Eos % (Auto) Not Reportable Baso % (Auto) Not Reportable Lymph # (Auto) Not Reportable Gray # (Auto) Not Reportable Eos # (Auto) Not Reportable Baso # (Auto) Not Reportable Abs Immat Gran (auto) Not Reportable Absolute Neuts (auto) Not Reportable Absolute Nucleated RBC Not Reportable Total Counted 100 Neutrophils % (Manual) 59 (46-73) % Band Neutrophils % 1 (0-6) % Lymphocytes % (Manual) 25.0 (18-44) % Monocytes % (Manual) 8 (3-9) % Basophils % (Manual) 7 H (0-1) % Nucleated RBC % Not Reportable Abs Neuts (Manual) 6.90 H (1.3-6.7) K/mm3 Abs Lymphs (Manual) 2.87 (1.1-4.5) K/mm3 Abs Monocytes (Manual) 0.92 H (0.1-0.90) K/mm3 Abs Basophils (Manual) 0.80 H (0.0-0.1) K/mm3 Platelet Estimate Adequate (Adequate) Anisocytosis 1+ Schistocytes None seen Sodium 140 (137-145) mmol/L Potassium 3.3 L (3.4-5.0) mmol/L Chloride 105 (98-107) mmol/L Carbon Dioxide 27 (22-30) mmol/L Anion Gap 8 (4-12) mmol/L BUN 20 H D (7-17) mg/dL Creatinine 0.86 (0.7-1.0) mg/dL Estim Creat Clear Calc 62 ml/min Estimated GFR > 60 (59 - ) Glucose 103 (65-110) mg/dL Calcium 9.1 (8.4-10.2) mg/dL Magnesium 2.0 (1.6-2.3) mg/dL Total Bilirubin 0.1 L (0.2-1.3) mg/dL AST 55 H (14-36) U/L ALT 75 H (6-35) U/L Alkaline Phosphatase 31 L (38-126) U/L Total Protein 6.7 (6.3-8.2) g/dL Albumin 4.1 (3.5-5.1) g/dL Serum HCG, Qual Negative Syphilis IgG/IgM Ab Non-reactive (Nonreactive) C. trachomatis (PCR) Not detected (NOT DETECTE) N. gonorrhoeae (PCR) Not detected (NOT DETECTE) T. vaginalis (PCR) Detected A (NOT DETECTE) Discharge Plan Discharge Clinical Impression: Trichomonas vaginalis (TV) infection, Acute hypokalemia, 1st degree sunburn Patient Disposition: Home Condition: Stable Instructions: Antibiotic Form, Trichomoniasis (ED), Hypokalemia (ED) Additional Instructions: test was negative, your testing came back positive for Trichomonas which is a STD any need to contact your sexual partners for them to received treatment as well. We will treat you with 7 days of antibiotics to take care of this infection. Your potassium was also low which could be contributing to her symptoms in the hands/extremities. We have treated this in the emergency department and we recommend good oral hydration and electrolyte replacement solutions. Follow-up with your regular primary care provider on outpatient basis. Return with any worsening or new concerns. Patient Language: Yakut Prescriptions: New metronidazole 500 mg tablet 500 mg PO BID 7 Days Qty: 14 0RF Follow-up/Referrals: PHYSICIAN,SECURITIES AND REAL ESTATE DIRECTOR [Primary Care Provider] - Time of Disposition: 03:19
[2025-01-29 01:16] VITALS: BP 134/74; PULSE 106; RESP 18; O2SAT 100
--- NOTE | 2025-01-29 01:42 | PC.NURSE ---
Patient refused labs multiple times. EDP notified.
[2025-01-29 01:51] LABS: Hematocrit 36.4 % (37.0-47.0); Hemoglobin 11.9 g/dL (12.0-15.0); Mean Corpuscular HGB Conc 32.7 g/dl (32-36); Mean Corpuscular Hemoglobin 31.1 pg (26-34); Mean Corpuscular Volume 95.0 fl (80-100); Platelet Count Result 203 k/mm3 (150-375); Red Blood Count 3.83 M/mm3 (4.2-5.4); White Blood Count 11.5 K/mm3 (4.5-10.0)
--- NOTE | 2025-01-29 02:04 | PC.NURSE ---
00:30 Patient at the nurses desk, using the nurses phone, yelling at staff about her care since arriving in the ED. Patient is screaming at staff and speaking to friend on the phone about picking her up because she waited so long in the waiting room before arriving. Security called for aggressive behavior.
[2025-01-29 02:13] LABS: Anisocytosis 1+; Band Neutrophils Percent 1 % (0-6); Basophils Absolute Manual 0.80 K/mm3 (0.0-0.1); Basophils Percent Manual 7 % (0-1); Lymphocytes Absolute Manual 2.87 K/mm3 (1.1-4.5); Lymphocytes Percent Manual 25.0 % (18-44); Monocytes Absolute Manual 0.92 K/mm3 (0.1-0.90); Monocytes Percent Manual 8 % (3-9); Neutrophils Absolute Manual 6.90 K/mm3 (1.3-6.7); Neutrophils Percent Manual 59 % (46-73); Schistocytes None Seen; Total Cells Counted 100
[2025-01-29 02:18] LABS: Alanine Aminotransferase 75 U/L (6-35); Albumin Level 4.1 g/dL (3.5-5.1); Alkaline Phosphatase 31 U/L (38-126); Anion Gap 8 mmol/L (4-12); Aspartate Amino Transferase 55 U/L (14-36); Bilirubin,Total 0.1 mg/dL (0.2-1.3); Blood Urea Nitrogen 20 mg/dL (7-17); Calcium 9.1 mg/dL (8.4-10.2); Carbon Dioxide 27 mmol/L (22-30); Chloride 105 mmol/L (98-107); Estimated CRCL calculation 62 ml/min; Estimated Glomerular Filt Rate > 60; Glucose 103 mg/dL (65-110); Magnesium 2.0 mg/dL (1.6-2.3); Potassium 3.3 mmol/L (3.4-5.0); Sodium 140 mmol/L (137-145); Total Protein 6.7 g/dL (6.3-8.2)
[2025-01-29 02:28] LABS: SPREG INTERNAL CONTROL Positive; Serum Qual hCG Negative
[2025-01-29 02:30] LABS: Trichomonas Vag PCR DETECTED (NOT DETECTE)
[2025-01-29 02:30] LABS: Syphilis IgG/IgM Antibody Non-Reactive (Nonreactive)
[2025-01-29] MEDS: POTASSIUM CHLORIDE 20 MEQ PACKET (FOR LIQUID) PO (03:26)
== END 2025-01-29 03:33 | disposition home or self-care (01) ==
PROVIDERS: Emergency Provider Student in an Organized Health Care Education/Training Program
DX: A59.01 Trichomonal vulvovaginitis (principal); L55.0 Sunburn of first degree; E87.6 Hypokalemia; Z11.3 Encounter for screening for infections with a predominantly sexual mode of transmission
CPT/HCPCS: 36415; 80053; 83735; 84703; 85025; 86593; 87491; 87591; 87661; 99284; A9270